=== PATIENT | male | born 1995 | race Caucasian/White ===

== ENCOUNTER 2019-10-29 17:43 | Emergency (ER) | payer OTHER ==
[~2019-10-29] VITALS: Ht 170.2 cm; Wt 79.4 kg
[~2019-10-29 17:43] MED LIST: SYNTHROID200 MCG
[2019-10-29] MEDS ORDERED: SYNTHROID50 MCG (17:50)
== END 2019-10-29 18:57 | disposition home or self-care (01) ==
LOC: ER
DX: L05.01 Pilonidal cyst with abscess (principal); B96.89 Other specified bacterial agents as the cause of diseases classified elsewhere